=== PATIENT | male | born 1990 | race Caucasian/White ===

== ENCOUNTER 2016-11-10 09:24 | Emergency (ER) | payer SELFPAY ==
[~2016-11-10] VITALS: Ht 182.8 cm; Wt 99.8 kg
[~2016-11-10 09:24] MED LIST: ADDERALL20 MG PO; BACTRIM DS 8001 TA1 PO; CEPHALEXIN500 M1 PO; FLOMAX0.4 MG PO; KEFLEX500 MG PO; TOBRADEX 0.1%-0.5 ML OPH; VICODIN 5/500 505 MG PO
[2016-11-10] MEDS ORDERED: KEFLEX500 M1 PO (10:26)
== END 2016-11-10 11:01 | disposition home or self-care (01) ==
LOC: ED 09:24
DX: S61.211A Laceration without foreign body of left index finger without damage to nail, initial encounter (principal); F17.200 Nicotine dependence, unspecified, uncomplicated; Z90.49 Acquired absence of other specified parts of digestive tract; W22.8XXA Striking against or struck by other objects, initial encounter; Y93.89 Activity, other specified; Y92.89 Other specified places as the place of occurrence of the external cause; Y99.9 Unspecified external cause status

== ENCOUNTER 2017-09-04 19:53 | Emergency (ER) | payer SELFPAY ==
[~2017-09-04] VITALS: Wt 83.9 kg
[~2017-09-04 19:53] MED LIST changes: +KEFLEX500 M1 PO
[2017-09-04] MEDS ORDERED: CEPHALEXIN500 M1 PO (20:56)
== END 2017-09-04 21:15 | disposition home or self-care (01) ==
LOC: ED 19:53
DX: S20.212A Contusion of left front wall of thorax, initial encounter (principal); S70.212A Abrasion, left hip, initial encounter; F17.200 Nicotine dependence, unspecified, uncomplicated; V99.XXXA Unspecified transport accident, initial encounter; Y93.89 Activity, other specified; Y92.413 State road as the place of occurrence of the external cause; Y99.8 Other external cause status

== ENCOUNTER 2018-04-17 14:47 | Emergency (ER) | payer SELFPAY ==
[~2018-04-17] VITALS: Ht 182.8 cm; Wt 88.5 kg
[2018-04-17] MEDS ORDERED: PREDNISONE20 M1 PO (16:01)
== END 2018-04-17 16:12 | disposition home or self-care (01) ==
LOC: ED 14:47
DX: S10.93XA Contusion of unspecified part of neck, initial encounter (principal); M25.512 Pain in left shoulder; Y08.89XA Assault by other specified means, initial encounter; Y93.89 Activity, other specified; Y92.098 Other place in other non-institutional residence as the place of occurrence of the external cause; Y99.8 Other external cause status

== ENCOUNTER → 2020-05-13 | Outpatient (CLI) | payer SELFPAY ==
[~2020-05-13] MED LIST changes: +PREDNISONE20 M1 PO
== END | disposition home or self-care (01) ==
LOC: COVID19 15:14
PROVIDERS: ATTEND Internal Medicine
DX: Z20.828 Contact with and (suspected) exposure to other viral communicable diseases (principal)